=== PATIENT | male | born 2000 | race African-American/Black ===

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

== ENCOUNTER 2020-01-11 10:25 | Emergency (ER) | payer BC ==
[~2020-01-11] VITALS: Ht 172.7 cm; Wt 60.5 kg
[2020-01-11 10:34] VITALS: BP 125/87; TEMP 98.6
[2020-01-11 11:20] LABS: COLLECTION METHOD CLEAN CATCH
[2020-01-11 11:26] LABS: BASO % 0.5 % (0.0-2.0); EOS # 0.1 (0.0-0.7); EOS % 0.6 % (0-4.0); GRAN # 5.4 (1.4-6.5); GRAN % 62.9 % (42.2-75.2); HEMATOCRIT 49.7 % (36.0-47.0); HEMOGLOBIN 16.6 g/dl (12.5-16.1); LYMPH # 2.3 (1.2-3.4); LYMPH % 26.4 % (20.0-51.0); MEAN CELL VOLUME 83 fl (80.0-95.0); MEAN CORPUSCULAR HEMOGLOBIN 28 pg (26.0-32.0); MEAN CORPUSCULAR HGB CONC 33 g/dl (33.0-37.0); MEAN PLATELET VOLUME 8.8 fl (7.4-10.4); MONO # 0.8 (0.1-0.6); MONO % 9.1 % (1.7-9.3); PLATELET COUNT 313 K/mm3 (130-400); RED BLOOD COUNT 5.97 M/mm3 (4.20-5.60); REDCELL DISTRIBUTION WIDTH-CV 12.1 % (11.5-14.5)
[2020-01-11 11:28] LABS: MUCOUS Present /lpf; PH 7 (5-8); SQUAMOUS EPITHELIAL 0-2 /hpf; URINE APPEARANCE Clear; URINE BACTERIA None Seen /hpf; URINE BILIRUBIN Negative (NEGATIVE); URINE BLOOD Negative (NEGATIVE); URINE COLOR Yellow; URINE GLUCOSE Negative (NEGATIVE); URINE KETONE 2+ (NEGATIVE); URINE LEUKOCYTE ESTERASE Negative (NEGATIVE); URINE NITRATE Negative (NEGATIVE); URINE PROTEIN(semi-quant) 1+ (NEGATIVE); URINE RBC None Seen /hpf; URINE UROBILINOGEN >=4.0 mg/dL (NEGATIVE)
[2020-01-11 11:40] LABS: ALANINE AMINOTRANSFERASE 28 U/L (4-49); ALBUMIN 5.2 gm/dL (3.5-5.0); ALKALINE PHOSPHATASE 96 U/L (50-136); ANION GAP 12 mmol/L (7-16); AST,SGOT 27 U/L (15-37); BILIRUBIN,TOTAL 1.7 mg/dL (0.0-1.0); BLOOD UREA NITROGEN 14 mg/dL (9-20); C-REACTIVE PROTEIN < 0.5 mg/dL (0.0-0.9); CALCIUM 10.5 mg/dL (8.4-10.2); CARBON DIOXIDE 26 mmol/L (22-30); CHLORIDE 98 mmol/L (98-107); CREATININE, serum 1.08 (0.66-1.25); GLUCOSE 106 mg/dL (74-106); POTASSIUM 3.3 mmol/L (3.4-5.0); SODIUM 137 mmol/L (137-145); TOTAL PROTEIN 9.2 gm/dL (6.4-8.2)
[2020-01-11 12:25] VITALS: PULSE 71
== END 2020-01-11 12:23 | disposition home or self-care (01) ==
LOC: COL.ER 10:25
PROVIDERS: Physician Assistant
DX: K29.70 Gastritis, unspecified, without bleeding (principal)
CPT/HCPCS: C9113; J2405; J7030